=== PATIENT | male | born 1965 | race African-American/Black ===

== ENCOUNTER 2021-03-05 16:07 | Emergency (ER) | payer OTHER ==
[~2021-03-05] VITALS: Ht 182.9 cm; Wt 113.4 kg
[2021-03-05 16:20] VITALS: BP 159/86
== END 2021-03-05 17:59 | disposition home or self-care (01) ==
LOC: ER 16:07
DX: M54.16 Radiculopathy, lumbar region (principal); E11.9 Type 2 diabetes mellitus without complications; I10 Essential (primary) hypertension; Z88.6 Allergy status to analgesic agent; Z88.8 Allergy status to other drugs, medicaments and biological substances; V43.52XA Car driver injured in collision with other type car in traffic accident, initial encounter; Y93.89 Activity, other specified; Y92.69 Other specified industrial and construction area as the place of occurrence of the external cause; Y99.8 Other external cause status

== ENCOUNTER 2022-12-03 06:23 | Emergency (ER) | payer OTHER ==
[~2022-12-03] VITALS: Ht 182.9 cm; Wt 109.0 kg
[2022-12-03] MEDS ORDERED: KETOROLAC TROMETH 30 MG/ML 1ML VIAL IM ONE (07:00)
[2022-12-03 07:10] VITALS: BP 196/92
[2022-12-03] MEDS ORDERED: CYCL-839 PO (10:49)
[2022-12-03] MEDS ORDERED: LIDO5DIS21 TOP (10:49)
== END 2022-12-03 10:25 | disposition home or self-care (01) ==
LOC: ER 06:23
DX: G89.29 Other chronic pain (principal); M54.50 Low back pain, unspecified; G62.9 Polyneuropathy, unspecified; E11.9 Type 2 diabetes mellitus without complications; I10 Essential (primary) hypertension; Z88.6 Allergy status to analgesic agent; Z88.5 Allergy status to narcotic agent
CPT/HCPCS: 72100; 96372; 99283; J1885